=== PATIENT | female | born 1990 | race Caucasian/White ===

== ENCOUNTER 2018-01-09 09:40 | Inpatient (IN) | payer OTHER ==
[~2018-01-09] VITALS: Ht 160 cm; Wt 61.8 kg
[2018-01-09] MEDS ORDERED: LACTATED RINGER'S 1000ML 1,000 ML IV SCH (10:42)
[2018-01-09] MEDS ORDERED: LACTATED RINGER'S 1000ML 1,000 ML IV PRN (10:42)
[2018-01-09] MEDS ORDERED: PENICILLIN G POTASSIUM IV 3 MU in DEXTROSE 5% 100ML 100 ML IV PRN (10:45)
[2018-01-09] MEDS ORDERED: PENICILLIN G POTASSIUM IV 6 MU in DEXTROSE 5% 250ML 250 ML IV ONE (11:00)
[2018-01-09 11:06] VITALS: Ht 160 cm; Wt 61.8 kg
[2018-01-09] MEDS ORDERED: BUPIVACAINE 0.25% 30 ML VIAL ONE (11:21)
[2018-01-09] MEDS ORDERED: EpHEDrine SULFATE INJ 50 MG/ML AMP ONE (11:21)
[2018-01-09] MEDS ORDERED: FENTANYL 2MCG/ML ROPIV 1.25MG/ML 100ML BAG ONE (11:22)
[2018-01-09] MEDS ORDERED: FENTANYL CITRATE INJ 50 MCG/1 ML 2 ML VIAL ONE (11:22)
[2018-01-09 11:30] LABS: HEMATOCRIT 33.5 % (37-47); HEMOGLOBIN 11.7 g/dL (12.0-16.0); MEAN CELL VOLUME 90.1 fL (80-100); MEAN CORPUSCULAR HEMOGLOBIN 31.5 pg (25-34); MEAN CORPUSCULAR HGB CONC 34.9 g/dl (32-36); MEAN PLATELET VOLUME 13.5 fL (7.4-10.4); PLATELET COUNT 125 K/uL (130-400); RED CELL DISTRIBUTION WIDTH CV 12.2 % (11.5-14.5); WHITE BLOOD COUNT 11.43 K/uL (4.8-10.8)
[2018-01-09] MEDS ORDERED: LACTATED RINGER'S 1000ML 500 ML IV PRN (12:32)
[2018-01-09] MEDS ORDERED: NALOXONE HCL INJ 1 MG in SODIUM CHLORIDE 0.9% 1000ML 1,000 ML IV PRN (12:32)
[2018-01-09] MEDS ORDERED: NALBUPHINE HCL INJ 10 MG/ML AMP IV PRN (12:45)
[2018-01-09] MEDS ORDERED: NALOXONE HCL INJ 0.4 MG/1 ML VIAL/CARP IV PRN (12:45)
[2018-01-09] MEDS ORDERED: DiphenhydrAMINE HCL 50 MG/ML VIAL IV PRN (12:45)
[2018-01-09] MEDS ORDERED: ONDANSETRON INJ 2 MG/ML 2 ML VIAL IV PRN (12:45)
[2018-01-09] MEDS ORDERED: EpHEDrine SULFATE INJ 50 MG/ML AMP IV PRN (12:45)
[2018-01-09] MEDS ORDERED: FENTANYL 2MCG/ML ROPIV 1.25MG/ML 100ML BAG EPI PRN (12:45)
[2018-01-09] MEDS ORDERED: GLC/500 PO (13:32)
[2018-01-09] MEDS ORDERED: OXYTOCIN 30 UNITS/500ML NSS IV ONE (15:14)
[2018-01-09] MEDS ORDERED: ACETAMINOPHEN/CODEINE 300/30MG TAB PO PRN ×2 (16:15)
[2018-01-09] MEDS ORDERED: DIPHTHERIA/TETANUS/PERTUSSIS 0.5 ML SYR/VIAL IM. ONE (16:15)
[2018-01-09] MEDS ORDERED: ACETAMINOPHEN 325 MG TAB PO PRN (16:15)
[2018-01-09] MEDS ORDERED: BENZOCAINE 20% AER SPR 82.5 GM CAN EXT PRN (16:15)
[2018-01-09] MEDS ORDERED: OXYTOCIN 30 UNITS/500ML NSS IV PRN (16:15)
[2018-01-09] MEDS ORDERED: SUPERCREAM 0.870 % 15GM JAR EXT PRN (16:15)
[2018-01-09] MEDS ORDERED: LANOLIN OINT EXT PRN (16:15)
[2018-01-09] MEDS ORDERED: HYDROCORTISONE ACETATE 25 MG SUPP PR PRN (16:15)
--- NOTE | 2018-01-09 16:46 | DELIVERY SUMMARY ---
DATE OF OPERATION: 01/09/2018 DATE OF DELIVERY: 01/09/2018 FINDINGS: Viable female with Apgars of 8 and 9. Baby delivered spontaneously over a midline episiotomy. Cord gases and cord blood samples obtained. Placenta delivered spontaneously. Midline episiotomy was repaired with 4-0 Vicryl in a routine fashion. ESTIMATED BLOOD LOSS: 300 mL. LABOR NOTE: The patient is a 27-year-old 1, para 0 with an EDC of 01/25/2018 at 37+ weeks gestational age, who presented to labor and delivery to rule out rupture of membranes. The patient had been getting her care in [place], [place]. The patient moved to [place] this weekend with her new boyfriend who is not the father of the baby. The patient states that she had been leaking fluid, the boyfriend called labor and delivery and did not know what to do in that situation and we recommended that the patient come to the hospital for evaluation. The patient has an obvious learning disability and is unable to answer most questions concerning her care. The patient's doctor in [place] has been contacted and some records are available. The patient states that she initially was going to terminate the , then she decided to continue the and give the baby out for adoption. However, sometime in the third trimester, she decided to keep the baby. The patient states that the father of the baby is not involved. She had been living with friends in [place], but she moved to [place] with her new boyfriend. The patient apparently had gestational diabetes and was treated with metformin during the , but she states that she never took her blood sugar. Laboratory values for the showed blood type of A positive, antibody negative, Rubella immune, and hepatitis B negative. Upon admission, sterile speculum examination was performed which showed gross rupture, the patient was 5 cm dilated, 100% effaced, and 0 station. Tracing was category 1. GBS status was initially unknown and she got a dose of penicillin 6 million unit loading dose. GBS status was then determined to be negative and the penicillin was discontinued. The patient became uncomfortable. Anesthesia was consulted and an epidural was placed. Following placement of the epidural, the patient progressed to full dilation and began her second stage. The patient pushed for approximately an hour delivering the viable female over a midline episiotomy. Cord was clamped and cut. Cord gases and cord blood samples were obtained. Placenta was delivered spontaneously and sent for pathological evaluation. Midline episiotomy was repaired with 4-0 Vicryl in a routine fashion. Estimated blood loss 300 mL. Sponge and needled count was correct. I attest to the content of the Intraoperative Record and any orders documented therein. Any exception s are noted below.
--- NOTE | 2018-01-09 19:40 | Anesthesia Procedure Note ---
Anesthesia Epidural Removal Nt Date & Time January 09, 2018 at 19:40 Vital Signs Pain Intensity: 0.0 Notes Mental Status: alert / awake / arousable, participated in evaluation Nausea / Vomiting: adequately controlled Pain: adequately controlled Airway Patency, RR, SpO2: stable & adequate BP & HR: stable & adequate Hydration State: stable & adequate Neuraxial Anesthesia: was administered Anesthetic Complications: no major complications apparent, pt satisfied with anesthetic care Epidural: removed without complications, with tip intact
[2018-01-09 20:45] VITALS: BP 131/86; PULSE 76; TEMP 37; O2SAT 96
[2018-01-09] MEDS: DOCUSATE SODIUM 100 MG CAP PO SCH (21:07)
[2018-01-09] MEDS: IBUPROFEN 600 MG TAB PO PRN (23:37)
[2018-01-09 23:40] VITALS: BP 124/80; PULSE 74; TEMP 36.9
[2018-01-10] VITALS (7 sets, daily range): BP systolic 111–131; BP diastolic 77–88; PULSE 59–80; TEMP 36.4–37.3; O2SAT 97
[2018-01-10] MEDS: IBUPROFEN 600 MG TAB PO PRN ×4 (04:30→20:34)
[2018-01-10 06:36] LABS: HEMATOCRIT 28.4 % (37-47); HEMOGLOBIN 9.6 g/dL (12.0-16.0)
--- NOTE | 2018-01-10 06:44 | Progress Note ---
Subjective January 10, 2018. Subjective conversation w/ patient Ambulation: ambulating normally Voiding: no voiding problems Diet Tolerance: Regular Diet Lochia: Moderate Feeding Type: Bottle Feeding Pain: 3/10, improves with analgesia Review of Systems Constitutional: No fever, No chills Respiratory: No shortness of breath Cardiac: No chest pain Abdomen: No nausea, No vomiting Objective Vital Signs Date Time Temp Pulse Resp B/P (MAP) Pulse Ox O2 Delivery O2 Flow Rate FiO2 01/10/18 04:25 36.4 67 20 111/77 (88) Room Air 01/09/18 23:40 36.9 74 18 124/80 (95) Room Air 01/09/18 23:40 Room Air 01/09/18 20:45 37.0 76 18 131/86 (101) 96 Room Air 01/09/18 20:45 Room Air Physical Exam General Appearance: WELL-APPEARING, WD/WN, NO APPARENT DISTRESS Respiratory/Chest: lungs clear, normal breath sounds Cardiovascular: regular rate, rhythm Abdomen: soft Fundus: Firm, Non-Tender, Relation to Umbilicus (1 below) Extremities: no pedal edema, no calf tenderness Laboratory Results Last 24 Hours Test 01/09/18 10:44 01/10/18 06:14 White Blood Count 11.43 K/uL Red Blood Count 3.72 M/uL Hemoglobin 11.7 g/dL 9.6 g/dL Hematocrit 33.5 % 28.4 % Mean Corpuscular Volume 90.1 fL Mean Corpuscular Hemoglobin 31.5 pg Mean Corpuscular Hemoglobin Concent 34.9 g/dl RDW Standard Deviation 40.0 fL RDW Coefficient of Variation 12.2 % Platelet Count 125 K/uL Mean Platelet Volume 13.5 fL Platelet Estimate NORMAL Medications Current Inpatient Medications Medications (Trade) Dose Ordered Sig/Tony Route Start Time Stop Time Status Last Admin Dose Admin Lactated Ringer's 1,000 ml @ 125 mls/hr Q8H IV 01/09/18 10:42 01/11/18 10:41 01/09/18 11:18 125 MLS/HR Lactated Ringer's 1,000 ml @ 999 mls/hr Q1H1M PRN IV 01/09/18 10:42 02/08/18 10:41 Oxytocin (Pitocin IV) 30 units UD PRN IV 01/09/18 16:15 02/08/18 16:14 Benzocaine (Dermoplast Aero Spr) 1 appln PRN PRN EXT 01/09/18 16:15 02/08/18 16:14 01/09/18 21:08 1 APPLN Cocaine HCl (Supercream 0.870% Cr) BID PRN EXT 01/09/18 16:15 01/23/18 16:14 Hydrocortisone Acetate (Anusol Hc Supp) 25 mg BID PRN SD 01/09/18 16:15 02/08/18 16:14 Lanolin (Lanolin Oint) PRN PRN EXT 01/09/18 16:15 02/08/18 16:14 Prenat Multivit/ [place]/Iron/Folic Ac ( Vitamin Tab) 1 tab DAILY PO 01/10/18 08:00 02/09/18 07:59 Ibuprofen (Motrin Tab) 600 mg Q4H PRN PO 01/09/18 16:15 02/08/18 16:14 01/10/18 04:30 600 MG Acetaminophen (Tylenol Tab) 650 mg Q6H PRN PO 01/09/18 16:15 02/08/18 16:14 Acetaminophen/ Codeine Phosphate (Tylenol w/ Codeine #3 Tab) 1 tab Q4H PRN PO 01/09/18 16:15 02/08/18 16:14 Acetaminophen/ Codeine Phosphate (Tylenol w/ Codeine #3 Tab) 2 tab Q4H PRN PO 01/09/18 16:15 02/08/18 16:14 Bisacodyl (Dulcolax Tab) 5 mg 20 PO 01/10/18 20:00 01/10/18 20:01 Docusate Sodium (coLACE CAP) 100 mg BID PO 01/09/18 20:00 02/08/18 19:59 01/09/18 21:07 100 MG Ferrous Sulfate (Feosol Tab) 325 mg DAILY PO 01/10/18 08:00 02/09/18 07:59 Assessment and Plan Post- Day#: 1 Continue Routine Care: 27F s/p NVD with episiotomy day 1 - A+, Rubella Immune, GBS -ve - pt doing well clinically - Vital signs reviewed and WNL - Hemoglobin reviewed. 11.7 -> 9.6 - Encourage ambulation, monitor and control pain with Motrin PRN Resident Physician Supervision Note: I interviewed and examined the patient. Discussed with Dr. Arthur and agree with findings and plan as documented in the note. Any exceptions or clarifications are listed here: Per nursing patient is very pleasant, but is not mature enough to care for baby. Improvement Auditor consult pending. Documented By: Sergio Bacon Resident Tracking Resident Involvement: Resident Care Provided Care Provided: OB Delivery
[2018-01-10] MEDS ORDERED: PRENTAB26 PO (07:01)
--- NOTE | 2018-01-10 07:02 | Discharge Instructions ---
Discharge Instructions Date of Service January 10, 2018. Admission Reason for Admission: Check Rupture Discharge Discharge Diagnosis / Problem: Vaginal Delivery Discharge Goals Goal(s): Routine recovery after delivery Medications Continue Dispensed Medications: supercream, dermaplast, tucks, lansinoh Activity Recommendations Activity Limitations: per Instructions/Follow-up section . Instructions / Follow-Up Instructions / Follow-Up ACTIVITY RECOMMENDATIONS: * Gradual return to full activity over the next 2-3 weeks. * No lifting - nothing heavier than baby over the next 2-3 weeks. * Do not engage in vigorous exercise, sexual activity or sports until cleared by your physician. * Do not drive or operate any motorized equipment until cleared by your physician. * You may shower/bathe daily. MEDICATIONS: For discomfort or pain, you may use Acetaminophen (Tylenol), Ibuprofen (Advil), or Naproxen (Aleve) following the package directions. For constipation you may use Colace following the package directions. BREAST CARE: If you are not breast feeding: * Wear a supportive bra 24 hours a day for one to two weeks. * Avoid stimulating your breasts and nipples as much as possible during the first few weeks after delivery. * When taking a shower, have the warm water hit your back, not breasts. * When your breasts feel full, apply ice packs. Usually three to four times a day helps ease the discomfort. * Take a mild pain medication (Tylenol / Motrin) when you are uncomfortable. If breast feeding: * Use breast milk to lubricate nipples. Lansinoh cream may be used for sore nipples. You do not need to remove cream prior to breast feeding. If using a different brand of cream, check the label for directions regarding removal of cream prior to nursing. * Wear a supportive bra. * If having problems with breasts or breast feeding, call a real estate listing consultant or your health care provider. EPISIOTOMY CARE: After delivery, if you have an episiotomy (stitches), the following steps will ease discomfort and aid healing. * For the first 24 hours after delivery, place ice packs next to your episiotomy to help reduce swelling. * After the first 24 hour-period, sitz baths, either portable or in the tub, are suggested. A shower with a shower arm sprayed over the episiotomy may be comforting. * Delmy care should be done after each voiding and bowel movement. Squirt warm water from a plastic bottle over the perineum (region of the body between the anus and urinary opening) and pat dry. * Use Dermoplast to ease discomfort. Shake container. [place] directly over the episiotomy. Place a Tucks on a clean sanitary pad next to your episiotomy. SPECIAL CARE INSTRUCTIONS: When you are discharged from the hospital, it is important for you to follow the instructions listed below: * During the first week at home, you should be able to care for yourself and your baby. In addition, the usual light household activities are encouraged. * Limit your activities to the way you feel. Do not try to clean the house or move furniture. Be sensible. * If you actively engage in sports and have done so up until the time of your delivery, you may resume these activities as soon as you feel able. This may take up to one month or even longer. Use good judgment. * Continue to take your vitamins for at least six weeks after the of your baby. * Your diet need not be limited unless you were on a special diet before your delivery. Breast-feeding mothers need around 2500 calories per day and at least 64-80 ounces of fluid per day (8 to 10 glasses). * You should eat foods from the four major food groups. Crash diets or fad diets are to be avoided. Eating lean meats, fresh fruits and vegetables, low-fat dairy products, high fiber foods and a regular exercise program, will help you get back to your pre- weight without putting your health at risk. * Constipation is sometimes a problem after delivery. Take a mild laxative as needed. If breast feeding, Milk of Magnesia is acceptable to use. You may use a suppository or Fleets enema if no episiotomy. * A daily shower or tub bath is suggested. Be sure to thoroughly and gently dry the perineum. * A bloody vaginal discharge will usually continue until around four weeks post . A small amount of bleeding may continue for as long as six weeks. Vaginal discharge changes from the bright red bleeding after delivery to pink then brownish and finally yellowish-pink before becoming white and disappearing. * Bleeding may increase with activity. Your first period may come in 4-8 weeks. If you are breast feeding, your period may be delayed even longer. * [place] (sex) can begin whenever both you and your partner feel comfortable and do not have any form of genital infection. It is recommended that you wait at least six weeks for internal and external healing to occur. If you have questions, please talk to your health care practitioner. A condom should be used to prevent infection and . * Foreplay, gentle intercourse and lubrication is very important the first several times to prevent pain. A water-based lubricant such as K-Y jelly or Astroglide may be used. * If you have RH negative blood and your baby is RH positive, you will receive RHOGAM by injection prior to discharge. The nurse will give you a card to keep with you that has the date and place that you received RHOGAM after delivery. * During your care, you had a Rubella screen done to check for the presence of rubella antibodies in your blood. If your test was negative, you will receive a Rubella vaccine prior to discharge. This vaccine may cause a fever, soreness at the injection site and flu-like symptoms. If these symptoms persist, notify your health care practitioner. is not advised for one month after a Rubella vaccine. * Verbalizes understanding of car seat law as reviewed with patient nursing. * Car Seat hand-out given and reviewed with patient by nursing. * Shaken baby information reviewed with patient by nursing. Call you doctor if: * Heavy bleeding (saturating several pads an hour) or passing clots the size of your fist. * A fever >101 degrees F (38.3 degrees C) on two occasions four hours apart and /or chills. * Unusual pain in the pelvic or vaginal areas. * "Baby Blues" lasting longer than two weeks. If you have any questions or concerns, call your health care practitioner at . FOLLOW UP VISIT: * Please call the office at to schedule a 6 week examination. It is important you keep this appointment. It is important for you to make arrangements for either yearly or twice yearly check-ups thereafter. Current Hospital Diet Patient's current hospital diet: Regular OB Diet Discharge Diet Recommended Diet: Regular Diet Pending Studies Studies pending at discharge: no Medical Emergencies . Who to Call and When: Medical Emergencies: If at any time you feel your situation is an emergency, please call 911 immediately. . Non-Emergent Contact Non-Emergency issues call your: Primary Care Provider . . "Provider Documentation" section prepared by Karely Arthur. .
[2018-01-10] MEDS: PRENATAL VITAMIN TAB PO SCH (08:12)
[2018-01-10] MEDS: DOCUSATE SODIUM 100 MG CAP PO SCH ×2 (08:12→20:33)
[2018-01-10] MEDS: FERROUS SULFATE 325 MG TAB PO SCH (08:12)
[2018-01-10] MEDS ORDERED: BISACODYL 5 MG TABEC PO SCH (20:00)
[2018-01-11] MEDS: IBUPROFEN 600 MG TAB PO PRN ×3 (00:41→12:07)
--- NOTE | 2018-01-11 06:17 | Progress Note ---
Subjective January 11, 2018. Subjective conversation w/ patient Ambulation: ambulating normally Voiding: no voiding problems Diet Tolerance: Regular Diet Lochia: Small Feeding Type: Bottle Feeding Pain: 3/10 abdominal pain reported, improved with analgesia Review of Systems Constitutional: No fever, No chills Respiratory: No shortness of breath Cardiac: No chest pain Abdomen: No nausea, No vomiting Objective Vital Signs Date Time Temp Pulse Resp B/P (MAP) Pulse Ox O2 Delivery O2 Flow Rate FiO2 01/10/18 23:20 36.4 60 20 129/88 (102) Room Air 01/10/18 23:20 Room Air 01/10/18 15:30 36.7 64 18 116/79 (91) Room Air 01/10/18 15:30 Room Air 01/10/18 11:30 36.6 59 18 125/81 (96) Room Air 01/10/18 08:58 36.8 68 20 127/86 (100) 97 Room Air 01/10/18 08:00 97 Room Air Physical Exam General Appearance: WELL-APPEARING, WD/WN, NO APPARENT DISTRESS Respiratory/Chest: lungs clear, normal breath sounds Cardiovascular: regular rate, rhythm Abdomen: soft Fundus: Firm, Non-Tender, Relation to Umbilicus (2 below) Extremities: no pedal edema, no calf tenderness Assessment and Plan Post- Day#: 2 Continue Routine Care: 27F s/p NVD with episiotomy day 2 - A+, Rubella Immune, GBS -ve - pt continues to do well - Vital signs reviewed and WNL - Hemoglobin reviewed. 11.7 -> 9.6 - Encourage ambulation, monitor and control pain with Motrin PRN - pt has social work consult in place -> will be discharged with home nursing visits Resident Physician Supervision Note: I interviewed and examined the patient. Discussed with Dr. Arthur and agree with findings and plan as documented in the note. Any exceptions or clarifications are listed here: [None] Documented By: Madyson Page Resident Tracking Resident Involvement: Resident Care Provided Care Provided: OB Delivery
[2018-01-11 08:00] VITALS: BP 125/79; PULSE 64; TEMP 36.6; O2SAT 97
[2018-01-11] MEDS: PRENATAL VITAMIN TAB PO SCH (08:44)
[2018-01-11] MEDS: DOCUSATE SODIUM 100 MG CAP PO SCH (08:44)
[2018-01-11] MEDS: FERROUS SULFATE 325 MG TAB PO SCH (08:44)
[2018-01-11 16:15] VITALS: BP_DIAS 79; PULSE 64; TEMP 36.6
== END 2018-01-11 16:15 | disposition home or self-care (01) | DRG 775 ==
LOC: C.OPB 09:40 → C.LD 09:41 → C.OPB 10:41 → C.OBG 21:00
PROVIDERS: ADMIT Obstetrics & Gynecology; ATTEND Obstetrics & Gynecology
PROC: 0W8NXZZ Division of Female Perineum, External Approach (ICD-10-PCS; principal; 2018-01-09)
PROC: 10E0XZZ Delivery of Products of Conception, External Approach (ICD-10-PCS; principal; 2018-01-09)
DX: O24.425 Gestational diabetes mellitus in childbirth, controlled by oral hypoglycemic drugs (principal); O99.344 Other mental disorders complicating childbirth; F81.9 Developmental disorder of scholastic skills, unspecified; Z3A.37 37 weeks gestation of pregnancy; Z37.0 Single live birth; Z79.84 Long term (current) use of oral hypoglycemic drugs

== ENCOUNTER → 2018-03-28 | Outpatient (CLI) | payer OTHER ==
[~2018-03-28] MED LIST: GLC/500 PO
== END | disposition home or self-care (01) ==
LOC: C.PATHSPEC 16:27
PROVIDERS: ATTEND Obstetrics & Gynecology
DX: R87.610 Atypical squamous cells of undetermined significance on cytologic smear of cervix (ASC-US) (principal)

== ENCOUNTER 2019-02-14 17:26 | Inpatient (IN) ==
--- OUTSIDE RECORDS SUMMARY | 2019-02-14 17:29 | External Medical Summary | Continuity of Care Document ---
:1990 Author Name Yuan Bee, Provider Address Unavailable Unavailable , Care Team Providers Name Role Phone Unavailable Unavailable Unavailable Jordi Bee, Sergio Sood Unavailable [email or web address] PCP, UNKNOWN Unavailable Unavailable Unavailable Unavailable Unavailable Problems Gestational diabetes mellitus, delivered (648.81) (O24.429) Encounter for Depo-Provera contraception (V25.49) (Z30.42) ASCUS with positive high risk HPV cervical (795.01) (R87.610 ) Allergies and Adverse Reactions No Known Drug Allergies (Allergy) Medications medroxyPROGESTERone Acetate 150 MG/ML In tramuscular Suspension; INJECT 1 ML INTRAMUSCULARLY ONCE EVERY 3 MONTHS. Rohit Bacon Start: 8 Quantity: 1 Refills: 3 Procedures Procedures not documented Immunizations Immunizations not documented Plan of Treatment Planned Observations Planned Goals not documented Results No Known Results Results not documented Encounters Appointment; [facility], Nursing Station 12-May-2018 9:15 Encounter Diagnosis: Problem not documented Appointment; Sergio Bacon M.D. 28-Mar-2018 14:10 Encounter Diagnosis: Problem not documented Appointment; [facility], Procedure Room 28-Mar-2018 14:10 Encounter Diagnosis: Problem not documented Appointment; Sergio Bacon M.D. 18-Feb-2018 13:40 Encounter Diagnosis: Problem not documented
[2019-02-14 19:02] LABS: Appearance Urine Clear (Clear); Bacteria Urine Automated Negative (Negative); Bilirubin Urine Negative (Negative); Blood Urine Negative (Negative); Color Urine Yellow; Epithelial Cell Urine Auto >30 /lpf (0-5); Glucose Urine UA Negative (Negative); Ketones Urine Negative (Negative); Leukocyte Esterase Urine Negative (Negative); Nitrite Urine Negative (Negative); Protein Urine 2+ (Negative); RBC Urine Automated 0-4 /hpf (0-4); Specific Gravity Urine 1.022 (1.000-1.030); Urobilinogen Urine Negative (Negative); pH Urine 5.5 (4.5-7.5)
[2019-02-14 19:32] LABS: Total Protein Urine Random 149.4 mg/dl (0-11.9)
[2019-02-14] MEDS ORDERED: OXYTOCIN 30 UNITS/500 ML BAG IV PRN ×2 (19:38→19:52)
[2019-02-14] MEDS ORDERED: DINOPROSTONE 10 MG INSERT PV ONE (20:00)
--- NOTE | 2019-02-14 20:00 | History & Physical Report ---
Date of Service February 14, 2019 Assessment & Plan (1) Pre-eclampsia during in third trimester, antepartum: 28 yo at 38.5 wks, meeting criteria for preeclampsia without severe features VSS Afebrile FHR reassuring GBS Negative Early labor with irregular ctxs Plan to admit, monitor, labs, augmentation with pitocin and anticipate (2) Proteinuria affecting in third trimester: History of Present Illness Chief Complaint: Sent from office for proteinuria Primary Care Provider: NO PCP Patient is a 28 yo t 38.5 wks who was sent from office for borderline BP 138/90, proteinuria 4+ She had labs at [facility], Platelets were 138, LFT's are normal She had urine testing here 2+ protein and P/C ratio of 1.1 elevated Her BP's are borderline elevated 130's/ 90's She was recommended for IOL at term for preeclampsia without severe features She accepted Upon doing VE she was found to be in early labor, cervix at 5 cm/ 80%/ -2, bulgin bag Discussed augmentation with pitocin and accepted Her 1st baby was FT, at 8 months, SIDS This has been uncomplicated Patient denies VIDALES/ Change in vision/ N&V/ Epig or RUQ pain/ CP/SOB Feels irregular mild ctxs Allergies Allergy/AdvReac Type Severity Reaction Status Date / Time No Known Allergies Allergy Verified 02/14/19 17:57 Home Medications Home Medications Medication Instructions Recorded Confirmed Type acetaminophen [Tylenol] 650 mg PO QID PRN 02/14/19 02/14/19 History Patient History Social History Preferred Language: Irish Communication Ability: Effective Beliefs That Will Affect Care: None marital status: Single Current Living Situation: Significant Other Current Living Situation Comment: lives with boyfriend Efrain López Other Information That Helps Us Care for You: No Feels Safe at Home: Yes Safety Concerns: Feels Safe At This Time Smoking Status: Never smoker Hx Alcohol Use: No Hx Substance Use: No 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 No h/o STD's, no GC/ Chlamydia/ HSV h/o abnormal pap, plan was to repeat at 6 wks pp Review of Systems All systems reviewed & are unremarkable except as noted in HPI & below Physical Exam Constitutional: WD/WN, vitals as above Comfortable Respiratory: normal respiratory effort, lungs clear to auscultation Cardiovascular: RRR, no murmur, no edema Rate/Rhythm: regular rate Gastrointestinal (Abdomen): normal bowel sounds, soft, nontender, no hepatosplenomegaly soft, NT, Gravid Musculoskeletal: NT, 2+/2+ edema, 2+/2+ DTR, no clonus Genitourinary: 5/ 80%/ -2, vertex Results & Data Vital Signs (Past 12 Hours) Vital Signs Temp Pulse Resp BP 02/14/19 19:10 37.0 C 74 18 136/91 02/14/19 19:09 74 136/91 02/14/19 18:26 75 133/91 02/14/19 18:15 76 133/83 02/14/19 18:06 90 135/90 02/14/19 17:56 93 H 136/95 02/14/19 17:55 79 134/91 02/14/19 17:45 86 134/83 02/14/19 17:36 36.7 C 20 02/14/19 17:34 86 139/78
[2019-02-14] MEDS: LACTATED RINGER'S 1,000 ML IV PRN ×2 (20:10→23:21)
[2019-02-14 20:36] LABS: Albumin Level 2.7 gm/dl (3.4-5.0); BUN Creatinine Ratio 24.9 (10-20); Calcium 8.7 mg/dl (8.5-10.1); Creatinine Clr Calc Pharmacy 104.6 ml/min; Est GFR (African American) 129.9; Est GFR (Non-African American) 112.1; Hematocrit (blood only) 28.9 % (37-47); Hemoglobin 9.5 g/dL (12.0-16.0); Mean Corpuscular Hgb Conc 32.9 g/dL (32-36); Mean Corpuscular Volume 82.3 fL (80-100); Mean Platelet Volume 13.3 fL (7.4-10.4); Nucleated RBC # (auto) 0.03 K/uL (0-0); Nucleated RBC % (auto) 0.3 %; Platelet Count 130 K/uL (130-400); Platelet Estimate Normal (Normal); Potassium 4.1 mmol/L (3.5-5.1); RDW Standard Deviation 42.4 fL (36.4-46.3); Red Blood Count 3.51 M/uL (4.2-5.4); White Blood Count 10.34 K/uL (4.8-10.8)
[2019-02-14 20:39] LABS: Albumin Globulin Ratio 0.6 (0.9-2); Bilirubin,Total 0.3 mg/dl (0.2-1); Globulin 4.3 gm/dl (2.5-4.0)
[2019-02-14] MEDS ORDERED: fentaNYL citrate 100 MCG/2 ML VIAL ONE (22:27)
[2019-02-14] MEDS ORDERED: BUPIVACAINE 0.25% 30 ML VIAL ONE (22:27)
[2019-02-14] MEDS ORDERED: ePHEDrine sulfate 50 MG/ML AMP ONE (22:27)
[2019-02-14] MEDS ORDERED: fentaNYL 2MCG/ML ROPIV 1.25MG/ML 100 ML BAG EPI ONE (22:28)
[2019-02-14] MEDS ORDERED: NALOXONE HCL 0.4 MG/1 ML VIAL/CARP IV PRN (22:36)
[2019-02-14] MEDS ORDERED: fentaNYL 2MCG/ML ROPIV 1.25MG/ML 100 ML BAG EPI PRN (22:36)
[2019-02-14] MEDS ORDERED: DiphenhydrAMINE HCL 50 MG/ML VIAL IV PRN (22:36)
[2019-02-14] MEDS ORDERED: NALBUPHINE HCL INJ 10 MG/ML AMP IV PRN (22:36)
[2019-02-14] MEDS ORDERED: ePHEDrine sulfate 50 MG/ML AMP IV PRN (22:36)
[2019-02-14] MEDS ORDERED: ONDANSETRON INJ 2 MG/ML 2 ML VIAL IV PRN (22:36)
[2019-02-14] MEDS ORDERED: NALOXONE HCL 1 MG in SODIUM CHLORIDE 0.9% 1000ML 1,000 ML IV PRN (22:36)
--- NOTE | 2019-02-14 22:37 | Anesthesiology Consultation ---
Date of Service February 14, 2019 Assessment & Plan (1) Encounter for pre-operative examination: Chart Review Chart Review: Patient NOT seen in Pre Admission Testing and Acceptable Risk for Labor Epidural Consults Requested none History Height/Weight Height: 5 ft 3 in Weight: 65.771 kg Allergies Allergy/AdvReac Type Severity Reaction Status Date / Time No Known Allergies Allergy Verified 02/14/19 17:57 Medications Home Medications Medication Instructions Recorded Confirmed Last Taken acetaminophen [Tylenol] 650 mg PO QID PRN 02/14/19 02/14/19 Unknown Active Medications Generic Name Dose Route Start Last Admin Trade Name Freq PRN Reason Stop Dose Admin Lactated Ringer's 1,000 mls @ 125 mls/hr 02/14/19 19:38 02/14/19 22:15 Lr IV 02/16/19 19:37 999 mls/hr .Q8H PRN Infusion L&D Protocol Protocol Oxytocin 30 units in 500 mls @ 6 mls/hr 02/14/19 19:52 02/14/19 22:15 Pitocin IV 02/16/19 19:51 0.36 units/hr .Q24H PRN 6 mls/hr Labor Induction/Augmentation Titration Protocol 0.36 UNITS/HR Past Medical History Medical History Pre-eclampsia Exercise / Class Metabolic Activity II 4-5 Yardwork/Stairs/Walk up hill Past Surgical History none Past Anesthesia History No Hx of Anesthesia Complications and No Family Hx of Anesthesia Complications History of PONV No Hx of PONV and No Hx of Motion Sickness Social History Smoking Status: Never smoker Hx Alcohol Use: No Hx Substance Use: No Physical Exam Vital Signs Last Vital Signs Temp 37.0 C 02/14/19 19:10 Pulse 71 02/14/19 22:36 Resp 18 02/14/19 19:10 BP 147/86 H 02/14/19 22:31 Pulse Ox 99 02/14/19 22:36 Testing Laboratory Results 02/14/19 20:06 02/14/19 20:06 02/14/19 02/14/19 18:30 20:06 Urine Color Yellow Urine Appearance Clear Urine pH 5.5 Ur Specific [place] 1.022 Urine Protein 2+ H Urine Glucose (UA) Negative Urine Ketones Negative Urine Nitrite Negative Ur Leukocyte Esterase Negative Urine WBC (Auto) 1-5 Urine RBC (Auto) 0-4 U Hyaline Cast (Auto) 5-10 H U Epithel Cells (Auto) >30 H Urine Bacteria (Auto) Negative Blood Type A Positive Antibody Screen NEGATIVE
--- NOTE | 2019-02-14 23:39 | Obstetrical Progress Note ---
Date of Service February 14, 2019 Subjective Patient is reevaluated She is comfortable, received epidural for pain VE; 6/ 80%/ -2, offered AROM, patient declined, desires to rest/ sleep FHR categ I [place]: ctxs q 2-3 min Continue to monitor closely Results & Data Vital Signs (Past 12 Hours) Vital Signs Temp Pulse Resp BP Pulse Ox 02/14/19 23:32 75 99 02/14/19 23:30 65 137/81 02/14/19 23:27 68 98 02/14/19 23:22 67 98 02/14/19 23:17 72 99 02/14/19 23:15 74 143/82 H 02/14/19 23:12 69 140/79 98 02/14/19 23:09 72 134/81 02/14/19 23:07 71 99 02/14/19 23:06 69 135/81 02/14/19 23:03 88 139/101 H 02/14/19 23:02 74 99 02/14/19 23:00 74 140/91 02/14/19 22:57 74 100 02/14/19 22:52 86 100 02/14/19 22:47 76 99 02/14/19 22:36 71 99 02/14/19 22:31 36.9 C 70 18 147/86 H 99 02/14/19 22:26 69 99 02/14/19 22:21 65 99 02/14/19 22:11 67 156/94 H 02/14/19 21:05 69 149/91 H 02/14/19 19:10 37.0 C 74 18 136/91 02/14/19 19:09 74 136/91 02/14/19 18:26 75 133/91 02/14/19 18:15 76 133/83 02/14/19 18:06 90 135/90 02/14/19 17:56 93 H 136/95 02/14/19 17:55 79 134/91 02/14/19 17:45 86 134/83 02/14/19 17:36 36.7 C 20 02/14/19 17:34 86 139/78
--- NOTE | 2019-02-15 01:13 | Obstetrical Progress Note ---
Date of Service February 15, 2019 Subjective Patient is reevaluated She was itchy earlier and received IV Benadryl and Nubain FHR has been with decreased variability No accels, no decels VE; 6/ 80%/ -2, -1 with ctx, tight bag, AROM'ed, light meconium, FHR had accel and moderate variability after VE ctxs q 2-3 min Continue to monitor closely Anticipate Results & Data Vital Signs (Past 12 Hours) Vital Signs Temp Pulse Resp BP Pulse Ox 02/15/19 01:07 70 100 02/15/19 01:02 64 95 02/15/19 01:00 62 151/84 H 02/15/19 00:57 69 95 02/15/19 00:52 73 98 02/15/19 00:50 93 H 117/70 02/15/19 00:47 81 96 02/15/19 00:45 78 16 118/72 02/15/19 00:42 79 95 02/15/19 00:37 77 96 02/15/19 00:32 76 99 02/15/19 00:31 81 114/71 02/15/19 00:30 75 16 118/72 02/15/19 00:27 69 98 02/15/19 00:22 90 97 02/15/19 00:17 67 124/79 96 02/15/19 00:15 18 02/15/19 00:12 65 96 02/15/19 00:07 78 98 02/15/19 00:02 67 98 02/15/19 00:01 66 134/77 02/15/19 00:00 16 02/14/19 23:57 68 97 02/14/19 23:52 72 98 02/14/19 23:47 72 100 02/14/19 23:46 69 151/83 H 02/14/19 23:45 16 02/14/19 23:42 75 96 02/14/19 23:37 70 99 02/14/19 23:32 75 99 02/14/19 23:30 65 20 137/81 02/14/19 23:27 68 98 02/14/19 23:22 67 98 02/14/19 23:17 72 99 02/14/19 23:15 74 18 143/82 H 02/14/19 23:12 69 140/79 98 02/14/19 23:09 72 134/81 02/14/19 23:07 71 99 02/14/19 23:06 69 135/81 02/14/19 23:03 88 139/101 H 02/14/19 23:02 74 99 02/14/19 23:00 74 18 140/91 02/14/19 22:57 74 100 02/14/19 22:52 86 100 02/14/19 22:47 76 99 02/14/19 22:36 71 99 02/14/19 22:31 36.9 C 70 18 147/86 H 99 02/14/19 22:26 69 99 02/14/19 22:21 65 99 02/14/19 22:11 67 156/94 H 02/14/19 21:05 69 149/91 H 02/14/19 19:10 37.0 C 74 18 136/91 02/14/19 19:09 74 136/91 02/14/19 18:26 75 133/91 02/14/19 18:15 76 133/83 02/14/19 18:06 90 135/90 02/14/19 17:56 93 H 136/95 02/14/19 17:55 79 134/91 02/14/19 17:45 86 134/83 02/14/19 17:36 36.7 C 20 02/14/19 17:34 86 139/78
[2019-02-15] MEDS: LACTATED RINGER'S 1,000 ML IV PRN (02:19)
[2019-02-15] MEDS ORDERED: BENZOCAINE 20% AER SPR 82.5 GM CAN EXT PRN (03:04)
[2019-02-15] MEDS ORDERED: miSOPROStol 200 MCG TAB PR ONE (03:04)
[2019-02-15] MEDS ORDERED: SUPERCREAM 0.870% 15 GM JAR EXT PRN (03:04)
[2019-02-15] MEDS ORDERED: BISACODYL 10 MG SUPP PR PRN (03:04)
[2019-02-15] MEDS ORDERED: DIPHTHERIA/TETANUS/PERTUSSIS 0.5 ML SYR/VIAL IM ONE (03:04)
[2019-02-15] MEDS ORDERED: HYDROCORTISONE ACETATE 25 MG SUPP PR PRN (03:04)
[2019-02-15] MEDS ORDERED: OXYTOCIN 30 UNITS/500 ML BAG IV PRN (03:04)
[2019-02-15] MEDS ORDERED: LACTATED RINGER'S 1,000 ML IV SCH (03:15)
--- NOTE | 2019-02-15 03:18 | Anesthesia Procedure Note ---
Date of Service February 15, 2019 Anesthesia Post Epidural Note Vital Signs Vital Signs: Temp Pulse Resp BP Pulse Ox 37.1 C 74 20 157/73 H 98 02/15/19 02:00 02/15/19 03:09 02/15/19 02:45 02/15/19 03:09 02/15/19 03:07 Notes Mental Status: alert / awake / arousable and participated in evaluation Patient Amnestic to Procedure: No Nausea / Vomiting: adequately controlled Pain: adequately controlled Airway Patency, RR, SpO2: stable & adequate BP & HR: stable & adequate Hydration State: stable & adequate Neuraxial Anesthesia: was administered and sensory block is resolving Anesthetic Complications: no major complications apparent and Pt Satisfied with anesthetic care Epidural: Removed without complications and With tip intact
--- NOTE | 2019-02-15 04:51 | Delivery Summary ---
DATE OF OPERATION: 02/15/2019 TIME OF DELIVERY OF BABY: 2:53 a.m. TIME OF DELIVERY OF PLACENTA: 2:58 a.m. DETAILS OF DELIVERY: The patient was found to be fully dilated and desired to push. She pushed for about 20 minutes and delivered the head without difficulty. Shoulders were delivered with minimal traction and the baby was delivered without difficulty. Then per patient's request, the baby was held by myself. Cord was clamped x2 and cut and baby was handed off to the awaiting pediatric team per patient's request again. Baby was vigorously crying and moving. Then cord blood was obtained. Perineum and vagina were checked for lacerations, they were intact. No lacerations were found. Placenta was found to be in the vagina, delivered spontaneously as intact and complete. Uterus was explored, found to be empty. Lower segment was cleared of all clots and debris. EBL was 200ml. IV Pitocin infusion was started and 800 mcg of rectal Cytotec was placed. The fundus was firm and bleeding was minimal. Mom and baby tolerated the procedure well. Sponge, lap, instrument count was correct x2. Baby was a viable female , Apgars 8/9. No complications happened and I was present during whole procedure. I attest to the content of the Intraoperative Record and any orders documented therein. Any exceptions are noted below. MTDD
[2019-02-15] MEDS: IBUPROFEN 600 MG TAB PO PRN ×5 (05:33→20:46)
[2019-02-15] MEDS: DOCUSATE SODIUM 100 MG CAP PO SCH ×2 (08:25→20:45)
[2019-02-15] MEDS: PRENATAL VITAMIN 1 TAB PO SCH (08:25)
[2019-02-15] MEDS: FERROUS SULFATE 325 MG TAB PO SCH (08:25)
[2019-02-15] MEDS: ACETAMINOPHEN 325 MG TAB PO PRN (11:25)
[2019-02-16] MEDS: IBUPROFEN 600 MG TAB PO PRN ×4 (06:34→20:34)
[2019-02-16 08:01] LABS: Hematocrit (blood only) 26.2 % (37-47); Hemoglobin 8.5 g/dL (12.0-16.0); Mean Corpuscular Hgb Conc 32.4 g/dL (32-36); Mean Corpuscular Volume 82.4 fL (80-100); Platelet Count 105 K/uL (130-400); RDW Coefficient of Variation 13.9 % (11.5-14.5); RDW Standard Deviation 42.4 fL (36.4-46.3); Red Blood Count 3.18 M/uL (4.2-5.4); White Blood Count 8.72 K/uL (4.8-10.8)
[2019-02-16 08:02] LABS: Platelet Estimate Normal (Normal)
[2019-02-16] MEDS: FERROUS SULFATE 325 MG TAB PO SCH (08:19)
[2019-02-16] MEDS: DOCUSATE SODIUM 100 MG CAP PO SCH ×2 (08:19→20:34)
[2019-02-16] MEDS: PRENATAL VITAMIN 1 TAB PO SCH (08:19)
[2019-02-16] MEDS: ACETAMINOPHEN 325 MG TAB PO PRN (08:27)
--- NOTE | 2019-02-16 11:30 | Obstetrical Progress Note ---
Date of Service February 16, 2019 Assessment & Plan (1) normal course: PPD #1 Preeclampsia Pt doing well BP 150/90's not on any meds Asymptomatic. no headache, SOB or Visual changes CMP repeated this AM continue to follow BP Subjective Ambulation: ambulating normally Voiding: no voiding problems Passing Gas:: Yes Diet Tolerance:: regular diet Lochia:: Small Feeding Type:: breast feeding Review of Systems All systems reviewed & are unremarkable except as noted in HPI & below Physical Exam Constitutional WD/WN, vitals as above well developed and well nourished Eyes PERRL, conjunctivae normal, anicteric sclerae Neck trachea midline, no thyromegaly Respiratory normal respiratory effort, lungs clear to auscultation Auscultation: no crackles, no rales and no wheezes Cardiovascular RRR, no murmur, no edema Gastrointestinal (Abdomen) normal bowel sounds, soft, nontender, no hepatosplenomegaly Uterus is below umbilicus Musculoskeletal no cyanosis or clubbing, extremities motor strength 5/5 Skin no rashes, warm and dry Neurologic patellar DTR's 2+ bilat, sensation intact Psychiatric A+Ox3, euthymic affect Genitourinary normal external appearance Results & Data Vital Signs (Past 12 Hours) Vital Signs Temp Pulse Resp BP 02/16/19 07:15 36.3 C L 54 L 18 154/93 H 02/15/19 23:50 36.4 C L 65 18 138/80
[2019-02-16 12:21] LABS: Albumin Globulin Ratio 0.6 (0.9-2); Albumin Level 2.4 gm/dl (3.4-5.0); BUN Creatinine Ratio 17.5 (10-20); Bilirubin,Total 0.2 mg/dl (0.2-1); Calcium 9.2 mg/dl (8.5-10.1); Creatinine Clr Calc Pharmacy 117.5 ml/min; Est GFR (Non-African American) 120.8; Globulin 3.8 gm/dl (2.5-4.0); Potassium 3.9 mmol/L (3.5-5.1); Total Protein 6.2 gm/dl (6.4-8.2)
[2019-02-16] MEDS ORDERED: BISACODYL 5 MG TABEC PO SCH (20:00)
[2019-02-17] MEDS: IBUPROFEN 600 MG TAB PO PRN (04:21)
[2019-02-17 06:46] LABS: Hemoglobin 8.7 g/dL (12.0-16.0)
[2019-02-17] MEDS: FERROUS SULFATE 325 MG TAB PO SCH (07:32)
[2019-02-17] MEDS: PRENATAL VITAMIN 1 TAB PO SCH (07:32)
[2019-02-17] MEDS: ACETAMINOPHEN 325 MG TAB PO PRN (07:32)
[2019-02-17] MEDS: DOCUSATE SODIUM 100 MG CAP PO SCH (07:32)
== END 2019-02-17 08:35 | disposition home health service (06) | DRG 807 ==
LOC: OPB 17:26 → 4S1 17:27 → 4S2 02-15 05:15